=== PATIENT | male | born 1965 | race Caucasian/White ===

== ENCOUNTER 2021-10-03 19:47 | Inpatient (IN) | payer SELFPAY ==
[~2021-10-03] VITALS: Ht 188 cm; Wt 189.1 kg
--- NOTE | 2021-10-03 19:59 | NUR ---
BIB SELF C/O L SIDED LEG AND ARM WEAKNESS AND NUMBNESS X2HRS WELL HEADACHE SINCE 1400. PT STATES WEKNESS HAS PROGRESSIVELY WORSTENED AND HAS SIGNIFICANT DIFFICULTY MOVING BOTH LEFT EXTREMITIES. PT ALERT AND ORIENTED X4 W NO MENTAL STATUS CHANGES -FACIAL DROOP. PT BREATHING FAST BUT EVEN CHANGED INTO A GOWN AND PLACED ON MONITOR ALL V/S STABLE. MD AT THE BEDSIDE FOR EVALUATION.
--- NOTE | 2021-10-03 20:00 | NUR ---
CODE STROKE CALLED.
--- NOTE | 2021-10-03 20:00 | NUR ---
CODE STROKE CALLED.
--- NOTE | 2021-10-03 20:04 | NUR ---
PT TAKEN TO CT BY ADELITA VIA ACLS PROTOCOL
--- NOTE | 2021-10-03 20:04 | NUR ---
PT TAKEN TO CT BY ADELITA VIA ACLS PROTOCOL
[2021-10-03] MEDS ORDERED: IV NS 0.9% 250 ML IV ONE (20:05)
[2021-10-03] MEDS ORDERED: IOHEXOL-350 100 ML VIAL IV ONE (20:05)
--- NOTE | 2021-10-03 20:21 | NUR ---
PT RETURNED TO ER BED [address]
--- NOTE | 2021-10-03 20:21 | NUR ---
PT RETURNED TO ER BED [address]
--- NOTE | 2021-10-03 20:45 | NUR ---
PT AWAKE AND ALERT ALL V/S STABLE NO NEW NEURO DEFECITS NOTED ON ASSESSMENT.
--- NOTE | 2021-10-03 20:45 | NUR ---
PT AWAKE AND ALERT ALL V/S STABLE NO NEW NEURO DEFECITS NOTED ON ASSESSMENT.
[2021-10-03 20:47] LABS: BASOPHILS % (AUTO) 0.5 % (0.0-2.0); EOSINOPHILS % (AUTO) 4.9 % (0.0-6.0); HEMATOCRIT 42 % (39-51); HEMOGLOBIN 13.8 g/dL (13.5-17.5); LYMPHOCYTES # (AUTO) 1.3 K/uL (0.8-4.8); LYMPHOCYTES % (AUTO) 22.7 % (20.0-44.0); MEAN CORPUSCULAR HGB CONC 33 g/dl (31.0-36.0); MEAN CORPUSCULAR VOLUME 83 fL (80-96); MONOCYTES # (AUTO) 0.4 K/uL (0.1-1.30); MONOCYTES % (AUTO) 6.8 % (2.0-12.0); NEUTROPHILS # (AUTO) 3.8 K/uL (1.8-8.9); NEUTROPHILS % (AUTO) 65.1 % (43.0-81.0); PLATELET COUNT (AUTO) 248 K/uL (150-450); RED BLOOD CELL COUNT(AUTO) 5.04 MIL/uL (4.5-6.0); WHITE BLOOD COUNT (AUTO) 5.8 K/uL (4.3-11.0)
[2021-10-03 21:15] LABS: CALCIUM, SERUM 8.5 mg/dL (8.5-10.1); CARBON DIOXIDE 30 mmol/L (21-32); CHLORIDE 98 mmol/L (98-107); CREATININE 1.7 mg/dL (0.6-1.3); GLUCOSE 107 mg/dL (74-106); POTASSIUM 3.4 mmol/L (3.5-5.1); SODIUM SERUM 137 mmol/L (136-145); UREA NITROGEN, BLOOD 30 mg/dL (7-18)
--- NOTE | 2021-10-03 22:09 | NUR ---
PT AWAKE AND ALERT ALL V/S STABLE NO NEW NEURO DEFECITS NOTED ON ASSESSMENT.
--- NOTE | 2021-10-03 22:09 | NUR ---
PT AWAKE AND ALERT ALL V/S STABLE NO NEW NEURO DEFECITS NOTED ON ASSESSMENT.
--- NOTE | 2021-10-03 22:37 | NUR ---
COVID ANTIGEN SWAB COLLECTED AND SENT TO LAB. NOTIFIED LAB VIA PHONE CALL
--- NOTE | 2021-10-03 22:37 | NUR ---
COVID ANTIGEN SWAB COLLECTED AND SENT TO LAB. NOTIFIED LAB VIA PHONE CALL
[2021-10-03] MEDS ORDERED: MAGNESIUM HYDROXIDE 30 ML UDC PO PRN (23:30)
[2021-10-03] MEDS ORDERED: POTASSIUM CHLORIDE 20 MEQ TAB.PRT.SR PO ONE (23:30)
[2021-10-03] MEDS ORDERED: ONDANSETRON HCL/PF 4 MG/2 ML VIAL IVP PRN (23:30)
--- NOTE | 2021-10-04 00:39 | NUR ---
REPORT GIVEN TO WILLIAM
--- NOTE | 2021-10-04 00:39 | NUR ---
REPORT GIVEN TO WILLIAM
--- NOTE | 2021-10-04 00:54 | NUR ---
TRANSFERRED TO THIRD FLOOR UNDER ACLS
--- NOTE | 2021-10-04 00:54 | NUR ---
TRANSFERRED TO THIRD FLOOR UNDER ACLS
--- NOTE | 2021-10-04 01:00 | NUR ---
GAS LINE SERVICERSYSTEM SUPPORT SPECIALIST NOTE PATIENT ARRIVED ON FLOOR, ALERT/ORIENTED X 4, PT ABLE TO MAKE NEEDS KNOWN. PT DENIES PAIN AT THIS TIME. PATIENT STILL REPORTING LEFT SIDED WEAKNESS AND TINGLING BUT WAS ABLE TO WALK TO BED WITH SBA. PT STABLE ON RA, NO S/S OF DISTRESS OR SOB NOTED, BREATHING EVEN AND UNLABORED. PT ON EXTERNAL BOTTLE PACKER READING SINUS RHYTHM WITH PVC'S AND PAC'S. IV ACCESS ON RIGHT AND LEFT AC #18G INTACT AND FLUSHING WELL, PATIENT REPORTING PAIN ON RIGHT IV ACCESS SO IT WAS REMOVED, INTACT WITH MINIMAL BLEEDING. PATIENT REPORTS HEADACHE AROUND 2 PM FOLLOWED BY LEFT SIDED WEAKNESS A COUPLE HOURS LATER. HISTORY OF TIA, CHF, MS, CARDIAC STENT X 3. PATIENT STATES HE RECEIVED FLU VACCINE IN NOVEMBER AND IS FULLY VACCINATED FOR COVID INCLUDING BOOSTER, RECEIVED PFEIZER. PERFORMED BEDSIDE SWALLOW EVAL AND PATIENT WAS ABLE TO DRINK WATER WITHOUT COUGHING, CHOKING OR DRIPPING WATER, NO FACIAL DROOP OBSERVED EITHER. SAFETY MEASURES IN PLACE: CALL LIGHT WITHIN REACH, SIDE RAILS UP X 2, BED LOCKED IN LOW POSITION, BED ALARM ON. WILL CONTINUE TO MONITOR PATIENT
--- NOTE | 2021-10-04 01:00 | NUR ---
CUSTOMS HOUSE BROKERARTS AND HUMANITIES COUNCIL DIRECTOR NOTE PATIENT ARRIVED ON FLOOR, ALERT/ORIENTED X 4, PT ABLE TO MAKE NEEDS KNOWN. PT DENIES PAIN AT THIS TIME. PATIENT STILL REPORTING LEFT SIDED WEAKNESS AND TINGLING BUT WAS ABLE TO WALK TO BED WITH SBA. PT STABLE ON RA, NO S/S OF DISTRESS OR SOB NOTED, BREATHING EVEN AND UNLABORED. PT ON EXTERNAL CLIENT REPRESENTATIVE READING SINUS RHYTHM WITH PVC'S AND PAC'S. IV ACCESS ON RIGHT AND LEFT AC #18G INTACT AND FLUSHING WELL, PATIENT REPORTING PAIN ON RIGHT IV ACCESS SO IT WAS REMOVED, INTACT WITH MINIMAL BLEEDING. PATIENT REPORTS HEADACHE AROUND 2 PM FOLLOWED BY LEFT SIDED WEAKNESS A COUPLE HOURS LATER. HISTORY OF TIA, CHF, [place], CARDIAC STENT X 3. PATIENT STATES HE RECEIVED FLU VACCINE IN NOVEMBER AND IS FULLY VACCINATED FOR COVID INCLUDING BOOSTER, RECEIVED PFEIZER. PERFORMED BEDSIDE SWALLOW EVAL AND PATIENT WAS ABLE TO DRINK WATER WITHOUT COUGHING, CHOKING OR DRIPPING WATER, NO FACIAL DROOP OBSERVED EITHER. SAFETY MEASURES IN PLACE: CALL LIGHT WITHIN REACH, SIDE RAILS UP X 2, BED LOCKED IN LOW POSITION, BED ALARM ON. WILL CONTINUE TO MONITOR PATIENT
[2021-10-04] MEDS: ATORVASTATIN 10 MG TABLET PO SCH ×2 (01:55→21:06)
[2021-10-04] MEDS: IV NS 0.9% 1,000 ML IV PRN (01:55)
[2021-10-04] MEDS: CLOPIDOGREL BISULFATE 75 MG TABLET PO SCH ×2 (01:55→08:48)
[2021-10-04] MEDS ORDERED: POTASSIUM CHLORIDE 20 MEQ TAB.PRT.SR PO ONE (01:58)
[2021-10-04 04:08] VITALS: BP 127/71
[2021-10-04 07:18] LABS: CALCIUM, SERUM 8.9 mg/dL (8.5-10.1); CREATININE 1.4 mg/dL (0.6-1.3); POTASSIUM 3.4 mmol/L (3.5-5.1)
[2021-10-04 07:30] LABS: ALBUMIN 3.5 g/dL (3.4-5.0); BILIRUBIN,TOTAL 0.3 mg/dL (0.2-1.0); MAGNESIUM 2.3 mg/dL (1.8-2.4); PHOSPHORUS 4.3 mg/dL (2.5-4.9); TOTAL PROTEIN, SERUM 7.4 g/dL (6.4-8.2)
--- NOTE | 2021-10-04 07:30 | NUR ---
WOODWIND REEDS CUTTER OPENING NOTES RECEIVED PATIENT RESTING ON BED AND A/O X 4. KIM ROOM AIR BREATHING EVENLY AND UNLABORED. WITH NO COMPLAINTS OF PAIN OR DISCOMFORT AT THIS TIME. ON EXTERNAL FLAT KNITTER HELPER READING SINUS RHYTHM, WITH PVC'S, PAC'S AND OCCASIONAL BBB, HR: 76. WITH IV ACCESS ON LEFT AC #18G INTACT AND SALINE LOCKED. SAFETY MEASURES IN PLACED: CALL LIGHT WITHIN REACH, SIDE RAILS UP X 2, BED LOCKED IN LOW POSITION, BED ALARM ON. WILL CONTINUE TO MONITOR.
--- NOTE | 2021-10-04 07:30 | NUR ---
DOCUMENTATION COORDINATOR OPENING NOTES RECEIVED PATIENT RESTING ON BED AND A/O X 4. KIM ROOM AIR BREATHING EVENLY AND UNLABORED. WITH NO COMPLAINTS OF PAIN OR DISCOMFORT AT THIS TIME. ON EXTERNAL LOGISTICS CENTER MANAGER READING SINUS RHYTHM, WITH PVC'S, PAC'S AND OCCASIONAL BBB, HR: 76. WITH IV ACCESS ON LEFT AC #18G INTACT AND SALINE LOCKED. SAFETY MEASURES IN PLACED: CALL LIGHT WITHIN REACH, SIDE RAILS UP X 2, BED LOCKED IN LOW POSITION, BED ALARM ON. WILL CONTINUE TO MONITOR.
--- NOTE | 2021-10-04 07:38 | NUR ---
BROKER ASSISTANT CLOSING NOTE PATIENT AWAKE IN BED, ALERT/ ORIENTED X 4, PT ABLE TO MAKE NEEDS KNOWN. PATIENT STABLE ON RA, NO S/S OF DISTRESS OR SOB NOTED, BREATHING EVEN AND UNLABORED. PATIENT ON EXTERNAL HARVESTING CONTRACTOR READING SINUS RHYTHM, WITH PVC'S, PAC'S AND OCCASIONAL BBB, HR: 73. IV ACCESS ON LEFT AC #18G INTACT AND SALINE LOCKED, PATIENT REFUSED IVF DESPITE EXPLANATION OF RISKS AND BENEFITS, PT STATED HE HAS CHF AND IS DRINKING FLUIDS. MEDICATIONS GIVEN ORDERED, PT NEEDS MET THROUGHOUT SHIFT. SAFETY MEASURES IN PLACE: CALL LIGHT WITHIN REACH, SIDE RAILS UP X 2, BED LOCKED IN LOW POSITION, BED ALARM ON. ENDORSED TO DAY SHIFT NURSE FOR CONTINUITY OF CARE
--- NOTE | 2021-10-04 07:38 | NUR ---
OXYGEN THERAPY TEACHER CLOSING NOTE PATIENT AWAKE IN BED, ALERT/ ORIENTED X 4, PT ABLE TO MAKE NEEDS KNOWN. PATIENT STABLE ON RA, NO S/S OF DISTRESS OR SOB NOTED, BREATHING EVEN AND UNLABORED. PATIENT ON EXTERNAL CRINKLING MACHINE OPERATOR READING SINUS RHYTHM, WITH PVC'S, PAC'S AND OCCASIONAL BBB, HR: 73. IV ACCESS ON LEFT AC #18G INTACT AND SALINE LOCKED, PATIENT REFUSED IVF DESPITE EXPLANATION OF RISKS AND BENEFITS, PT STATED HE HAS CHF AND IS DRINKING FLUIDS. MEDICATIONS GIVEN ORDERED, PT NEEDS MET THROUGHOUT SHIFT. SAFETY MEASURES IN PLACE: CALL LIGHT WITHIN REACH, SIDE RAILS UP X 2, BED LOCKED IN LOW POSITION, BED ALARM ON. ENDORSED TO DAY SHIFT NURSE FOR CONTINUITY OF CARE
[2021-10-04 07:46] LABS: BASOPHILS % (AUTO) 0.6 % (0.0-2.0); EOSINOPHILS % (AUTO) 6.1 % (0.0-6.0); HEMATOCRIT 41 % (39-51); HEMOGLOBIN 13.8 g/dL (13.5-17.5); LYMPHOCYTES # (AUTO) 1.6 K/uL (0.8-4.8); LYMPHOCYTES % (AUTO) 25.7 % (20.0-44.0); MEAN CORPUSCULAR HGB CONC 33 g/dl (31.0-36.0); MEAN CORPUSCULAR VOLUME 83 fL (80-96); MONOCYTES # (AUTO) 0.6 K/uL (0.1-1.30); MONOCYTES % (AUTO) 8.8 % (2.0-12.0); NEUTROPHILS # (AUTO) 3.7 K/uL (1.8-8.9); NEUTROPHILS % (AUTO) 58.8 % (43.0-81.0); PLATELET COUNT (AUTO) 273 K/uL (150-450); WHITE BLOOD COUNT (AUTO) 6.3 K/uL (4.3-11.0)
[2021-10-04 08:00] VITALS: BP 135/71
[2021-10-04 08:46] LABS: THYROID STIMULATING HORMONE 9.824 uIU/mL (0.358-3.74)
[2021-10-04] MEDS: ASPIRIN 81 MG TAB.CHEW PO SCH (08:48)
[2021-10-04] MEDS ORDERED: ATOR80TA PO (09:23)
[2021-10-04] MEDS ORDERED: ASPI-1169 PO (09:24)
[2021-10-04] MEDS: ACETAMINOPHEN 325 MG TABLET PO PRN (16:29)
--- NOTE | 2021-10-04 18:28 | NUR ---
JOB PRESS FEEDER CLOSING NOTES PATIENT RESTING ON BED AND A/O X 4. ON ROOM AIR BREATHING EVENLY AND UNLABORED. WITH NO COMPLAINTS OF PAIN OR DISCOMFORT AT THIS TIME. ON EXTERNAL TRIMMER CLIMBER READING SINUS RHYTHM, WITH PVC'S, PAC'S AND OCCASIONAL BBB AT 90BPM. WITH IV ACCESS ON LEFT AC #18G INTACT AND SALINE LOCKED. SAFETY MEASURES IN PLACED: CALL LIGHT WITHIN REACH, SIDE RAILS UP X 2, BED LOCKED IN LOW POSITION, BED ALARM ON. WILL ENDORSE TO NEXT SHIFT FOR NU.
--- NOTE | 2021-10-04 18:28 | NUR ---
FLORIST'S DECORATOR CLOSING NOTES PATIENT RESTING ON BED AND A/O X 4. ON ROOM AIR BREATHING EVENLY AND UNLABORED. WITH NO COMPLAINTS OF PAIN OR DISCOMFORT AT THIS TIME. ON EXTERNAL SUPERVISOR ADULT EDUCATION READING SINUS RHYTHM, WITH PVC'S, PAC'S AND OCCASIONAL BBB AT 90BPM. WITH IV ACCESS ON LEFT AC #18G INTACT AND SALINE LOCKED. SAFETY MEASURES IN PLACED: CALL LIGHT WITHIN REACH, SIDE RAILS UP X 2, BED LOCKED IN LOW POSITION, BED ALARM ON. WILL ENDORSE TO NEXT SHIFT FOR NU.
[2021-10-04 20:00] VITALS: BP 132/82
[2021-10-05] MEDS: IV NS 0.9% 1,000 ML IV PRN (00:54)
--- NOTE | 2021-10-05 04:47 | NUR ---
CLOSING RN NOTES: ALERT AND ORIENTATED X4 NIHSS SCALE 6 D/T LEFT ARM DRIFT AND LEFT LEAK WEAKNESS. HE AMBULATES TO THE BATHROOM TURNS SELF IN THE BED HAND CUSTOMS BROKERAGE AGENT STRONG SWALLOWS W/O PROBLEMS. SPEECH CLEAR WILL MAKE HIS NEED KNOWN BED ALARM ON EXPLAINED TO HIM THE IMPORTANCE OF CALLING THE [facility] FOR ASSIST FOR SAFETY SR ON THE TELE MONITOR.
--- NOTE | 2021-10-05 04:47 | NUR ---
CLOSING RN NOTES: ALERT AND ORIENTATED X4 NIHSS SCALE 6 D/T LEFT ARM DRIFT AND LEFT LEAK WEAKNESS. HE AMBULATES TO THE BATHROOM TURNS SELF IN THE BED HAND PATIENT DAY COORDINATOR STRONG SWALLOWS W/O PROBLEMS. SPEECH CLEAR WILL MAKE HIS NEED KNOWN BED ALARM ON EXPLAINED TO HIM THE IMPORTANCE OF CALLING THE [facility] FOR ASSIST FOR SAFETY SR ON THE TELE MONITOR.
--- NOTE | 2021-10-05 05:20 | NUR ---
REFUSED 0400 AM VITAL SIGNS
--- NOTE | 2021-10-05 05:20 | NUR ---
REFUSED 0400 AM VITAL SIGNS
--- NOTE | 2021-10-05 05:28 | NUR ---
OFF THE MONITOR NO READING PATIENT REFUSING TO HAVE THE MONITOR LEADS CHANGED, PULLS THE BLANKET OVER HIS HEAD. THE LAD CAME IN AND HE REFUSED STATED "NOT TODAY", WHENI WENT TO TAKE HIS 4AM BLOOD PRESSURE HE COVERED HIS HEAD WITH THE BLANKET AND STATED "NO"
--- NOTE | 2021-10-05 07:45 | NUR ---
BED SETTER OPENING NOTES RECEIVED PT IN BED ASLEEP, EASY TO AROUSE. ALERT AND ORIENTED X4 . NO S/SX OF DISTRESS NOTED. NO SOB. BREATHING EVEN AND UNLABORED, TOLERATING WELL ON ROOM AIR. IV ACCESS ON LAC #18 INTACT AND PATENT. PT REFUSING IVF AT THIS TIME. PT REFUSING EXTERNAL MANAGER OF MAINTENANCE AT THIS TIME. SAFETY MEASURE IN PLACE WITH BED LOCKED AND IN LOWEST POSITION, SR UP X2, CALL LIGHT PLACED WITHIN EASY REACH. WILL CONTINUE TO MONITOR PT FOR CHANGES IN CONDITION.
--- NOTE | 2021-10-05 07:45 | NUR ---
SUPERVISOR BRAIDING OPENING NOTES RECEIVED PT IN BED ASLEEP, EASY TO AROUSE. ALERT AND ORIENTED X4 . NO S/SX OF DISTRESS NOTED. NO SOB. BREATHING EVEN AND UNLABORED, TOLERATING WELL ON ROOM AIR. IV ACCESS ON LAC #18 INTACT AND PATENT. PT REFUSING IVF AT THIS TIME. PT REFUSING EXTERNAL YARDER ENGINEER AT THIS TIME. SAFETY MEASURE IN PLACE WITH BED LOCKED AND IN LOWEST POSITION, SR UP X2, CALL LIGHT PLACED WITHIN EASY REACH. WILL CONTINUE TO MONITOR PT FOR CHANGES IN CONDITION.
[2021-10-05 09:25] LABS: ALBUMIN 3.2 g/dL (3.4-5.0); BILIRUBIN,TOTAL 0.4 mg/dL (0.2-1.0); CALCIUM, SERUM 8.7 mg/dL (8.5-10.1); POTASSIUM 3.5 mmol/L (3.5-5.1)
[2021-10-05] MEDS: ASPIRIN 81 MG TAB.CHEW PO SCH (09:25)
[2021-10-05] MEDS: CLOPIDOGREL BISULFATE 75 MG TABLET PO SCH (09:25)
[2021-10-05 09:44] LABS: BASOPHILS % (AUTO) 0.1 % (0.0-2.0); EOSINOPHILS % (AUTO) 2.6 % (0.0-6.0); HEMATOCRIT 41 % (39-51); HEMOGLOBIN 13.9 g/dL (13.5-17.5); LYMPHOCYTES # (AUTO) 0.6 K/uL (0.8-4.8); LYMPHOCYTES % (AUTO) 8.5 % (20.0-44.0); MEAN CORPUSCULAR HGB CONC 34 g/dl (31.0-36.0); MEAN CORPUSCULAR VOLUME 83 fL (80-96); MONOCYTES # (AUTO) 0.4 K/uL (0.1-1.30); MONOCYTES % (AUTO) 5.3 % (2.0-12.0); NEUTROPHILS # (AUTO) 6.3 K/uL (1.8-8.9); NEUTROPHILS % (AUTO) 83.5 % (43.0-81.0); PLATELET COUNT (AUTO) 240 K/uL (150-450); RED BLOOD CELL COUNT(AUTO) 4.98 MIL/uL (4.5-6.0); WHITE BLOOD COUNT (AUTO) 7.5 K/uL (4.3-11.0)
--- NOTE | 2021-10-05 19:31 | NUR ---
RN CLOSING NOTES PATIENT RESTING ON BED AND A/O X 4. ON ROOM AIR BREATHING EVENLY AND UNLABORED. WITH NO COMPLAINTS OF PAIN OR DISCOMFORT AT THIS TIME. PT REFUSING SUPERVISOR WHIPPED TOPPING. SAFETY MEASURES IN PLACED: CALL LIGHT WITHIN REACH, SIDE RAILS UP X 2, BED LOCKED IN LOW POSITION, BED ALARM ON. WILL ENDORSE TO NEXT SHIFT FOR NU.
--- NOTE | 2021-10-05 19:31 | NUR ---
RN CLOSING NOTES PATIENT RESTING ON BED AND A/O X 4. ON ROOM AIR BREATHING EVENLY AND UNLABORED. WITH NO COMPLAINTS OF PAIN OR DISCOMFORT AT THIS TIME. PT REFUSING SWIMMING POOL MAINTENANCE. SAFETY MEASURES IN PLACED: CALL LIGHT WITHIN REACH, SIDE RAILS UP X 2, BED LOCKED IN LOW POSITION, BED ALARM ON. WILL ENDORSE TO NEXT SHIFT FOR NU.
--- NOTE | 2021-10-05 19:40 | NUR ---
TELE/RN OPENING NOTE RECEIVED PATIENT RESTING IN BED. AWAKE, ALERT AND ORIENTED X 4. ABLE TO MAKE NEEDS KNOWN. DENIES PAIN AT THIS TIME. CONTINUES ON ROOM AIR WITH NO S/SX OF RESPIRATORY DISTRESS NOTED. IV ACCESS TO LEFT AC #18G INTACT, PATENT AND SALINE LOCKED. CONTINUES TO REFUSE IVF. PATIENT WITH GOOD PO INTAKE. CONTINUES TO REFUSE TELE MONITOR WITH RISKS EXPLAINED. CONTINUES ON NEURO CHECKS. CALL LIGHT WITHIN REACH. ASPIRATION, FALL AND SAFETY PRECAUTIONS MAINTAINED. WILL CONTINUE TO MONITOR.
[2021-10-05 20:37] VITALS: BP 130/82
[2021-10-05] MEDS: ATORVASTATIN 10 MG TABLET PO SCH (22:11)
[2021-10-06 00:27] VITALS: BP 148/94
--- NOTE | 2021-10-06 06:40 | NUR ---
TELE/RN CLOSING NOTE PATIENT CURRENTLY SLEEPING IN BED. ALERT AND ORIENTED X 4. ABLE TO MAKE NEEDS KNOWN. DENIES PAIN AT THIS TIME. CONTINUES ON ROOM AIR WITH NO S/SX OF RESPIRATORY DISTRESS NOTED. IV ACCESS TO LEFT AC #18G INTACT, PATENT AND SALINE LOCKED. CONTINUES TO REFUSE IVF. PATIENT WITH GOOD PO INTAKE. CONTINUES TO REFUSE TELE MONITOR WITH RISKS EXPLAINED. CONTINUES ON NEURO CHECKS. CALL LIGHT WITHIN REACH. ASPIRATION, FALL AND SAFETY PRECAUTIONS MAINTAINED. WILL ENDORSE PLAN OF CARE TO ONCOMING SHIFT.
--- NOTE | 2021-10-06 07:29 | NUR ---
BALE TIE MACHINE OPERATOR OPENING NOTES RECEIVED Pt SLEEPING IN BED, EASILY AROUSABLE. ALERT AND ORIENTED X 4. ABLE TO MAKE NEEDS KNOWN. DENIES PAIN AT THIS TIME, NO SIGNS OF DISTRESS NOTICED AT THIS TIME. Pt IS ON ROOM AIR AND TOLERATING WELL WITH NO SYMPTOMS OF RESPIRATORY DISTRESS NOTED. IV ACCESS ON LEFT AC #18g AND IS INTACT, PATENT AND SALINE LOCKED. Pt REFUSING IVF AT THIS TIME. PATIENT CURRENTLY REFUSING TELE MONITOR WITH RISKS EXPLAINED. CONTINUES ON NEURO CHECKS. SAFETY PRECAUTIONS IN PLACE: BED IS LOCKED AND IN LOWEST POSITION, SIDE RAILS UP x2, CALL LIGHT AND BEDSIDE TABLE ARE WITHIN REACH. WILL CONTINUE TO MONITOR THROUGHOUT THE SHIFT.
[2021-10-06] MEDS: CLOPIDOGREL BISULFATE 75 MG TABLET PO SCH (09:09)
[2021-10-06] MEDS: ASPIRIN 81 MG TAB.CHEW PO SCH (09:09)
[2021-10-06 12:06] LABS: *SPE ALPHA-1-GLOBULIN 0.2 g/dL (0.0-0.4); *SPE ALPHA-2-GLOBULIN 0.9 g/dL (0.4-1.0); *SPE BETA GLOBULIN 0.9 g/dL (0.7-1.3); *SPE M-SPIKE Not Observed g/dL (Not Observed)
--- NOTE | 2021-10-06 13:17 | NUR ---
SS Consult: SS consult for stroke. Pt. Is a 56-year-old male. Pt. demonstrates adequate insight to the reason for hospitalization. Pt. was oriented x4, alert, and cooperative. During interview, pt. was capable of following directions, made appropriate eye-contact, and appeared groomed. Pt.s speech was at a normal rate. Pt.s mood was elevated. SW explored pt.s hx of mental health and substance abuse. Pt. reported no hx of mental health, substance abuse, suicidal or homicidal ideation. Pt. denies auditory hallucinations, visual hallucinations, paranoia, or delusions. SW explored pt.s living situation. Per pt., he lives alone [[address] [place] [address]]. Pt. mentioned that he lives in [place] and has been in [place] since Saturday [10/03/21]. Per pt., he reports having no adequate support. Per pt., he has no insurance and is not sure how he will be paying for his stay at the hospital and physical therapy. Pt. requested to speak with CM. CHELLY did a PHQ9 on pt. and he scored a 2. No need for psych consult. Plan: SW provided available resources and pt. accepted. Resources Provided: Stroke Empowerment Packet
--- NOTE | 2021-10-06 13:17 | NUR ---
SS Consult: SS consult for stroke. Pt. Is a 56-year-old male. Pt. demonstrates adequate insight to the reason for hospitalization. Pt. was oriented x4, alert, and cooperative. During interview, pt. was capable of following directions, made appropriate eye-contact, and appeared groomed. Pt.s speech was at a normal rate. Pt.s mood was elevated. SW explored pt.s hx of mental health and substance abuse. Pt. reported no hx of mental health, substance abuse, suicidal or homicidal ideation. Pt. denies auditory hallucinations, visual hallucinations, paranoia, or delusions. SW explored pt.s living situation. Per pt., he lives alone [[address] [place] [address]]. Pt. mentioned that he lives in [place] and has been in [place] since Saturday [10/03/21]. Per pt., he reports having no adequate support. Per pt., he has no insurance and is not sure how he will be paying for his stay at the hospital and physical therapy. Pt. requested to speak with CM. CHELLY did a PHQ9 on pt. and he scored a 2. No need for psych consult. Plan: SW provided available resources and pt. accepted. Resources Provided: Stroke Empowerment Packet
[2021-10-06 16:00] VITALS: BP 123/59
--- NOTE | 2021-10-06 19:18 | NUR ---
TELE/RN CLOSING NOTE Pt CURRENTLY RESTING IN BED. ALERT AND ORIENTED X 4. ABLE TO MAKE NEEDS KNOWN. DENIES PAIN AT THIS TIME. CONTINUES ON ROOM AIR WITH NO S/SX OF RESPIRATORY DISTRESS NOTED. IV ACCESS TO LEFT AC #18g INTACT, PATENT AND SALINE LOCKED. CONTINUES TO REFUSE IVF AND CONTINUES TO REFUSE TO WEAR TELE MONITOR AND ALL RISKS EXPLAINED. CONTINUES ON NEURO CHECKS. SAFETY MEASURES ARE IN PLACE, CALL LIGHT AND BEDSIDE TABLE ARE WITHIN REACH. BED IS LOCKED AND IN LOWEST POSITION, SIDE RAILS UP x2. ASPIRATION, FALL AND SAFETY PRECAUTIONS MAINTAINED. WILL ENDORSE PLAN OF CARE TO ONCOMING SHIFT.
--- NOTE | 2021-10-06 19:30 | NUR ---
RN opening notes Pt is laying in bed comfortably watching TV. Pt is alert and orientedX4. Respiration is normal in room air. No SOB. No S/S of distress noted. IV site at LAC#18 is clean, intact and SL. Pt refused tele monitor. explained risks and benefits. Continues neuro checks. Safety precautions is maintained. Bed at low position, brakes locked, side rails up, hob elevated, urinal at the bedside and call light is within reach. Will continue to monitor.
[2021-10-06 20:00] VITALS: BP 110/52
[2021-10-06] MEDS: ATORVASTATIN 10 MG TABLET PO SCH (21:13)
--- NOTE | 2021-10-07 06:30 | NUR ---
RN closing notes Pt is resting in bed comfortably. Pt is alert and orientedX4. Respiration is normal in room air. No SOB. No S/S of distress noted. IV site at LAC#18 is clean, intact and SL. Routine meds were given as ordered. Continues neuro checks. Kept Pt clean, dry and comfortable. Safety precautions is maintained. Bed at low position, brakes locked, side rails up, hob elevated, urinal at the bedside and call light is within reach. Will endorse to am nurse for NU.
[2021-10-07] MEDS: ASPIRIN 81 MG TAB.CHEW PO SCH (08:41)
[2021-10-07] MEDS: CLOPIDOGREL BISULFATE 75 MG TABLET PO SCH (08:41)
[2021-10-07 09:33] LABS: BASOPHILS % (AUTO) 0.2 % (0.0-2.0); EOSINOPHILS % (AUTO) 4.9 % (0.0-6.0); HEMATOCRIT 41 % (39-51); HEMOGLOBIN 13.6 g/dL (13.5-17.5); LYMPHOCYTES # (AUTO) 1.1 K/uL (0.8-4.8); LYMPHOCYTES % (AUTO) 18.4 % (20.0-44.0); MEAN CORPUSCULAR HGB CONC 33 g/dl (31.0-36.0); MEAN CORPUSCULAR VOLUME 83 fL (80-96); MONOCYTES # (AUTO) 0.3 K/uL (0.1-1.30); MONOCYTES % (AUTO) 5.4 % (2.0-12.0); NEUTROPHILS # (AUTO) 4.3 K/uL (1.8-8.9); NEUTROPHILS % (AUTO) 71.1 % (43.0-81.0); PLATELET COUNT (AUTO) 226 K/uL (150-450); RED BLOOD CELL COUNT(AUTO) 4.96 MIL/uL (4.5-6.0); WHITE BLOOD COUNT (AUTO) 6.1 K/uL (4.3-11.0)
[2021-10-07 11:03] LABS: CALCIUM, SERUM 8.3 mg/dL (8.5-10.1); CREATININE 1.1 mg/dL (0.6-1.3); POTASSIUM 3.9 mmol/L (3.5-5.1)
--- NOTE | 2021-10-07 18:36 | NUR ---
RN MS CLOSING NOTES Pt IS RESTING IN BED. A/O x4. NO SIGNS OF DISTRESS AND NO COMPLAINTS OF PAIN AT THIS TIME. Pt IS ON ROOM AIR AND TOLERATING WELL AT THIS TIME. IV SITE ON L AC SL. IVF REFUSED BY Pt. NEURO CHECKS DONE ORDERED. Pt IS ABLE TO EXPRESS ALL NEEDS, ALL NEEDS MET. SAFETY MEASURES ARE IN PLACE: BED IS LOCKED AND IN LOWEST POSITION. SIDE RAILS UP x3. BED SIDE TABLE AND CALL LIGHT ARE WITHIN REACH. WILL ENDORSE TO ONCOMING SHIFT.
--- NOTE | 2021-10-07 19:20 | NUR ---
MS RN OPENING NOTES RECEIVED PATIENT LAYING AWAKE IN BED. A/OX4. PATIENT WITH REGULAR AND UNLABORED BREATHING ON ROOM AIR TOLERATED WELL. NO SIGNS AND SYMPTOMS OF DISTRESS NOTED AT THIS TIME. NO COMPLAINS OF PAIN OR DISCOMFORT AT THIS TIME. IV ACCESS LAC G #18 SL. IV ACCESS PATENT AND INTACT. SAFETY PRECAUTIONS ENFORCED WITH BED LOCKED AND AT LOWEST POSITION. SIDERAILS UP X2. CALL LIGHT WITHIN REACH AT ALL TIMES. WILL CONTINUE TO MONITOR PATIENT.
[2021-10-07 20:00] VITALS: BP 142/78
[2021-10-07] MEDS: ATORVASTATIN 10 MG TABLET PO SCH (22:18)
--- NOTE | 2021-10-08 06:50 | NUR ---
MS RN CLOSING NOTES PATIENT STILL LAYING AWAKE IN BED. A/OX4. PATIENT WITH REGULAR AND UNLABORED BREATHING ON ROOM AIR TOLERATED WELL. NO SIGNS AND SYMPTOMS OF DISTRESS NOTED AT THIS TIME. NO COMPLAINS OF PAIN OR DISCOMFORT AT THIS TIME. IV ACCESS LAC G #18 SL. IV ACCESS PATENT AND INTACT. SAFETY PRECAUTIONS ENFORCED WITH BED LOCKED AND AT LOWEST POSITION. SIDERAILS UP X2. CALL LIGHT WITHIN REACH AT ALL TIMES. WILL ENDORSE CONTINUITY OF CARE TO DAY SHIFT NURSE.
--- NOTE | 2021-10-08 07:30 | NUR ---
MS RN OPENING NOTES RECEIVED PATIENT ON BED AWAKE AND A/O X4. ON ROOM AIR TOLERATING WELL. NO SOB NOTED. NOT IN DISTRESS. WITH NO COMPLAINTS OF ABDOMINAL PAIN AND DIARRHEA. COMFORT MEASURES PROVIDED. WITH IV ACCESS LEFT AC G18 SALINE LOCKED, PATENT AND INTACT. SAFETY MEASURES IN PLACED. CALL LIGHT WITHIN REACH. BED ON LOWEST LOCKED POSITION. SIDE RAILS UP X2. WILL CONTINUE TO MONITOR.
[2021-10-08] MEDS: CLOPIDOGREL BISULFATE 75 MG TABLET PO SCH (08:15)
[2021-10-08] MEDS: ASPIRIN 81 MG TAB.CHEW PO SCH (08:15)
[2021-10-08 09:47] VITALS: BP 143/83
[2021-10-08] MEDS: LOPERAMIDE HCL (2 MG CAP) 2 MG CAPSULE PO PRN ×2 (12:58→20:56)
[2021-10-08 15:53] VITALS: BP 140/84
--- NOTE | 2021-10-08 18:39 | NUR ---
MS RN CLOSING NOTES PATIENT ON BED AWAKE AND A/O X4. ON ROOM AIR TOLERATING WELL. NO SOB NOTED. NOT IN DISTRESS. WITH NO COMPLAINTS OF PAIN OR DISCOMFORT. COMFORT MEASURES PROVIDED. WITH IV ACCESS LEFT AC G18 SALINE LOCKED, PATENT AND INTACT. DUE MEDS GIVEN. SAFETY MEASURES IN PLACED. CALL LIGHT WITHIN REACH. BED ON LOWEST LOCKED POSITION. SIDE RAILS UP X2. WILL ENDORSE TO NEXT SHIFT FOR NU.
--- NOTE | 2021-10-08 19:40 | NUR ---
RN NOTES RECEIVED PATIENT AWAKE ON HIS BED, A/OX4, DENEIS PAIN, NO SOB, CALL LIGHT WITHIN REACH, SIDERAILSUPX2, WILL CONTINUE TO MONITOR
--- NOTE | 2021-10-08 19:40 | NUR ---
RN NOTES RECEIVED PATIENT AWAKE ON HIS BED, A/OX4, DENEIS PAIN, NO SOB, CALL LIGHT WITHIN REACH, SIDERAILSUPX2, WILL CONTINUE TO MONITOR
[2021-10-08 20:00] VITALS: BP 137/92
[2021-10-08] MEDS: ATORVASTATIN 10 MG TABLET PO SCH ×2 (21:53→21:55)
--- NOTE | 2021-10-09 01:00 | NUR ---
RN NOTES INSERTED NEW IV ACCESS ON THE RIGHT WRIST # 22
--- NOTE | 2021-10-09 01:00 | NUR ---
RN NOTES INSERTED NEW IV ACCESS ON THE RIGHT WRIST # 22
--- NOTE | 2021-10-09 01:40 | NUR ---
RN NOTES PATIENT IS VOMITING, ZOFRAN 4 MG IV GIVEN ORDERED
--- NOTE | 2021-10-09 01:40 | NUR ---
RN NOTES PATIENT IS VOMITING, ZOFRAN 4 MG IV GIVEN ORDERED
[2021-10-09] MEDS: ACETAMINOPHEN 325 MG TABLET PO PRN (02:46)
[2021-10-09] MEDS: MORPHINE SULFATE INJ 2 MG/ML DISP.SYRIN IV PRN ×2 (03:00→14:48)
--- NOTE | 2021-10-09 03:00 | NUR ---
RN NOTES COMPLAINED OF SEVERE ABDOMINAL PAIN- SPOKE TO FAROOQ AND GOT ORDER OF MORPHINE 2 MG IV ORDER NOTED AND CARRIED OUT
--- NOTE | 2021-10-09 03:00 | NUR ---
RN NOTES COMPLAINED OF SEVERE ABDOMINAL PAIN- SPOKE TO FAROOQ AND GOT ORDER OF MORPHINE 2 MG IV ORDER NOTED AND CARRIED OUT
--- NOTE | 2021-10-09 03:00 | NUR ---
RN NOTES MORPHINE 2 MG IV GIVEN FOR SEVERE ABDOMINAL PAIN
--- NOTE | 2021-10-09 03:00 | NUR ---
RN NOTES MORPHINE 2 MG IV GIVEN FOR SEVERE ABDOMINAL PAIN
--- NOTE | 2021-10-09 06:47 | NUR ---
RN NOTES SLEEPING BUT AROUSABLE, PT. REFUSED LAB WORK THIS MORNING, CHARGE NURSE MADE AWARE., DENIES PAIN, NO SOB, CALL LIGHT WITHIN REACH, SIDERAILSUPX2, PT. NEEDS ATTENDED
--- NOTE | 2021-10-09 07:23 | NUR ---
MS RN OPENING NOTES RECEIVED PATIENT SLEEPING ON BED, EASILY AROUSED. NO SIGNS OF ACUTE DISTRESS NOTED. ON ROOM AIR TOLERATING WELL, NO SOB, BREATHING EVEN AND UNLABORED. WITH IV ACCESS ON RWRIST #22G, INTACT AND PATENT. DENIES ANY PAIN AT THIS TIME. SAFETY MEASURES IN PLACE. BED LOCKED AND IN LOWEST POSITION, SR UP X2, CALL LIGHT PLACED WITHIN EASY REACH. WILL CONTINUE TO MONITOR.
[2021-10-09] MEDS: ASPIRIN 81 MG TAB.CHEW PO SCH (08:30)
[2021-10-09] MEDS: CLOPIDOGREL BISULFATE 75 MG TABLET PO SCH (08:30)
[2021-10-09 12:02] LABS: BASOPHILS % (AUTO) 0.2 % (0.0-2.0); HEMATOCRIT 42 % (39-51); HEMOGLOBIN 13.9 g/dL (13.5-17.5); LYMPHOCYTES % (AUTO) 11.9 % (20.0-44.0); MEAN CORPUSCULAR HGB CONC 33 g/dl (31.0-36.0); MEAN CORPUSCULAR VOLUME 83 fL (80-96); MONOCYTES # (AUTO) 0.5 K/uL (0.1-1.30); MONOCYTES % (AUTO) 5.2 % (2.0-12.0); NEUTROPHILS % (AUTO) 79.7 % (43.0-81.0); PLATELET COUNT (AUTO) 282 K/uL (150-450); RED BLOOD CELL COUNT(AUTO) 5.02 MIL/uL (4.5-6.0); WHITE BLOOD COUNT (AUTO) 8.8 K/uL (4.3-11.0)
[2021-10-09 14:15] LABS: CALCIUM, SERUM 8.4 mg/dL (8.5-10.1); CREATININE 1.1 mg/dL (0.6-1.3); POTASSIUM 3.9 mmol/L (3.5-5.1)
[2021-10-09 16:00] VITALS: BP 132/73
--- NOTE | 2021-10-09 18:55 | NUR ---
MS RN CLOSING NOTES PATIENT ON BED AWAKE, A/O X4. NO SIGNS OF ACUTE DISTRESS NOTED. REMAINS ON ROOM AIR TOLERATING WELL, NO SOB, BREATHING EVEN AND UNLABORED. WITH IV ACCESS ON RWRIST #22G, INTACT AND PATENT. ALL DUE MEDS GIVEN. MORPHINE GIVEN IVP FOR C/O ABDOMINAL PAIN. SAFETY MEASURES IN PLACE. BED LOCKED AND IN LOWEST POSITION, SR UP X2, CALL LIGHT PLACED WITHIN EASY REACH. WILL ENDORSE TO NEXT SHIFT.
--- NOTE | 2021-10-09 19:40 | NUR ---
MSRN ASLEEP, APPEARS COMFORTABLE. PROVIDED QUIET ENVI. CLOSELY WATCHED.
--- NOTE | 2021-10-09 19:40 | NUR ---
MSRN ASLEEP, APPEARS COMFORTABLE. PROVIDED QUIET ENVI. CLOSELY WATCHED.
[2021-10-09 20:00] VITALS: BP 101/40
[2021-10-09] MEDS: ATORVASTATIN 40 MG TABLET PO SCH (21:36)
[2021-10-10] MEDS: MORPHINE SULFATE INJ 2 MG/ML DISP.SYRIN IV PRN ×3 (00:08→16:55)
--- NOTE | 2021-10-10 00:10 | NUR ---
msrn VERBALIZES ABD PAIN, MORPHINE 2 MG IVP ADMINISTERED. BEDREST INSTRUCTED.D
--- NOTE | 2021-10-10 00:10 | NUR ---
msrn VERBALIZES ABD PAIN, MORPHINE 2 MG IVP ADMINISTERED. BEDREST INSTRUCTED.D
--- NOTE | 2021-10-10 02:57 | NUR ---
MSRN EASILY AWAKENED WHEN CALLED, PAINFREE OF THIS TIME
--- NOTE | 2021-10-10 02:57 | NUR ---
MSRN EASILY AWAKENED WHEN CALLED, PAINFREE OF THIS TIME
--- NOTE | 2021-10-10 05:15 | NUR ---
MSRN VERBALIZES ABDOMINAL PAIN, MORPHINE 2MG IVP ADMINISTERED. KEPT COMFORTABLE. DENIES NAUSEA. STATES SLIGHT ITCHING ONLY.
--- NOTE | 2021-10-10 05:15 | NUR ---
MSRN VERBALIZES ABDOMINAL PAIN, MORPHINE 2MG IVP ADMINISTERED. KEPT COMFORTABLE. DENIES NAUSEA. STATES SLIGHT ITCHING ONLY.
--- NOTE | 2021-10-10 06:50 | NUR ---
MSRN SLEEPING APPEARS COMFORTABLE.
--- NOTE | 2021-10-10 06:50 | NUR ---
MSRN SLEEPING APPEARS COMFORTABLE.
[2021-10-10] MEDS ORDERED: ASPIRIN 81 MG TAB.CHEW PO SCH (09:00)
[2021-10-10] MEDS: CLOPIDOGREL BISULFATE 75 MG TABLET PO SCH (09:03)
[2021-10-10] MEDS: ASPIRIN 81 MG TAB.CHEW PO SCH (09:03)
[2021-10-10 16:00] VITALS: BP 95/67
--- NOTE | 2021-10-10 19:35 | NUR ---
MSRN FULLY AWAKE, STATED ABDOMINAL PAIN BETTER THIS TIME. VOIDED 600 CC CLEAR YELLOW OUTPUT. NO OTHER NEEDS MADE. CLOSELY WATCHED.
--- NOTE | 2021-10-10 19:35 | NUR ---
MSRN FULLY AWAKE, STATED ABDOMINAL PAIN BETTER THIS TIME. VOIDED 600 CC CLEAR YELLOW OUTPUT. NO OTHER NEEDS MADE. CLOSELY WATCHED.
--- NOTE | 2021-10-10 19:45 | NUR ---
RN CLOSING NOTES PATIENT IS AWAKE IN BED RESTING, A/O X4. NO S/S OF PAIN NOTED AT THIS TIME. ON ROOM AIR, NO DISTRESS OR SHORTNESS OF BREATH NOTED. IV ACCESS R WRIST #22G, INTACT AND PATENT, FLUSHING WELL. FALL AND SAFETY MEASURES IN PLACE, BED ALARM ON, BED IN LOW AND LOCK POSITION, CALL LIGHT AND TABLE WITHIN EASY REACH, SIDE RAIL UP X2. WILL ENDORSE TO OPERATIONS RESEARCH MANAGER.
[2021-10-10 20:40] VITALS: BP 130/52
[2021-10-10] MEDS: ATORVASTATIN 40 MG TABLET PO SCH (21:54)
--- NOTE | 2021-10-11 01:00 | NUR ---
MSRN SLEPT WELL. NO NEEDS FOR NOW
--- NOTE | 2021-10-11 01:00 | NUR ---
MSRN SLEPT WELL. NO NEEDS FOR NOW
--- NOTE | 2021-10-11 05:55 | NUR ---
MSRN REMAINS UNCHANGED, ABDOMINAL PAIN TOLERABLE. WILL CALL IF PAIN WORSENS.
--- NOTE | 2021-10-11 05:55 | NUR ---
MSRN REMAINS UNCHANGED, ABDOMINAL PAIN TOLERABLE. WILL CALL IF PAIN WORSENS.
--- NOTE | 2021-10-11 07:30 | NUR ---
MS RN OPENING NOTES PATIENT IS AWAKE IN BED RESTING, A/O X4. NO S/S OF PAIN NOTED AT THIS TIME. ON ROOM AIR, NO DISTRESS OR SHORTNESS OF BREATH NOTED. IV ACCESS R WRIST #22G, INTACT AND PATENT, FLUSHING WELL. FALL AND SAFETY MEASURES IN PLACE, BED ALARM ON, BED IN LOW AND LOCK POSITION, CALL LIGHT AND TABLE WITHIN EASY REACH, SIDE RAIL UP X2. WILL CONTINUE TO MONITOR.
[2021-10-11 08:00] VITALS: BP 114/65
[2021-10-11] MEDS: ASPIRIN 81 MG TAB.CHEW PO SCH (08:47)
[2021-10-11] MEDS: CLOPIDOGREL BISULFATE 75 MG TABLET PO SCH (08:47)
[2021-10-11] MEDS ORDERED: CLOP75TA15 PO (09:37)
[2021-10-11 16:00] VITALS: BP 136/68
--- NOTE | 2021-10-11 18:48 | NUR ---
MS RN CLOSING NOTES PATIENT IS AWAKE IN BED RESTING, A/O X4. NO S/S OF PAIN NOTED AT THIS TIME. ON ROOM AIR, NO DISTRESS OR SHORTNESS OF BREATH NOTED. IV ACCESS R WRIST #22G, INTACT AND PATENT, FLUSHING WELL. DUE MEDS GIVEN ORDERED.FALL AND SAFETY MEASURES IN PLACE, BED ALARM ON, BED IN LOW AND LOCK POSITION, CALL LIGHT AND TABLE WITHIN EASY REACH, SIDE RAIL UP X2. WILL ENDORSE TO INCOMING SHIFT FOR NU.
--- NOTE | 2021-10-11 19:35 | NUR ---
MS RN OPENING NOTES RECEIVED PATIENT LAYING AWAKE IN BED. A/OX4. PATIENT WITH REGULAR AND UNLABORED BREATHING ON ROOM AIR TOLERATED WELL. NO SIGNS AND SYMPTOMS OF DISTRESS NOTED AT THIS TIME. NO COMPLAINS OF PAIN OR DISCOMFORT AT THIS TIME. IV ACCESS R WRIST G #22 SL. IV ACCESS PATENT AND INTACT. SAFETY PRECAUTIONS ENFORCED WITH BED LOCKED AND AT LOWEST POSITION. SIDERAILS UP X2. CALL LIGHT WITHIN REACH AT ALL TIMES. WILL CONTINUE TO MONITOR PATIENT.
[2021-10-11] MEDS: ATORVASTATIN 40 MG TABLET PO SCH (21:30)
[2021-10-11] MEDS: MORPHINE SULFATE INJ 2 MG/ML DISP.SYRIN IV PRN (22:59)
--- NOTE | 2021-10-11 23:00 | NUR ---
MS RN NOTES PATIENT COMPLAINED OF PAIN. ADMINISTERED MORPHINE ORDERED BY THE HOSPITALIST. WILL CONTINUE TO MONITOR PATIENT.
--- NOTE | 2021-10-11 23:00 | NUR ---
MS RN NOTES PATIENT COMPLAINED OF PAIN. ADMINISTERED MORPHINE ORDERED BY THE HOSPITALIST. WILL CONTINUE TO MONITOR PATIENT.
[2021-10-12] MEDS: MORPHINE SULFATE INJ 2 MG/ML DISP.SYRIN IV PRN (03:33)
--- NOTE | 2021-10-12 03:34 | NUR ---
MS RN NOTES PATIENT COMPLAINED OF PAIN. ADMINISTERED MORPHINE ORDERED BY THE HOSPITALIST. WILL CONTINUE TO MONITOR PATIENT.
--- NOTE | 2021-10-12 03:34 | NUR ---
MS RN NOTES PATIENT COMPLAINED OF PAIN. ADMINISTERED MORPHINE ORDERED BY THE HOSPITALIST. WILL CONTINUE TO MONITOR PATIENT.
--- NOTE | 2021-10-12 06:48 | NUR ---
MS RN CLOSING NOTES PATIENT STILL LAYING AWAKE IN BED. A/OX4. PATIENT WITH REGULAR AND UNLABORED BREATHING ON ROOM AIR TOLERATED WELL. NO SIGNS AND SYMPTOMS OF DISTRESS NOTED AT THIS TIME. NO COMPLAINS OF PAIN OR DISCOMFORT AT THIS TIME. IV ACCESS R WRIST G #22 SL. IV ACCESS PATENT AND INTACT. SAFETY PRECAUTIONS ENFORCED WITH BED LOCKED AND AT LOWEST POSITION. SIDERAILS UP X2. CALL LIGHT WITHIN REACH AT ALL TIMES. WILL ENDORSE CONTINUITY OF CARE TO DAY SHIFT NURSE.
--- NOTE | 2021-10-12 07:20 | NUR ---
MS RN OPENING NOTES RECEIVED PT IN BED LAYING ON HIS SIDE, AWAKE. ALERT AND ORIENTED X4 . NO S/SX OF DISTRESS NOTED. NO SOB. NO C/O PAIN AT THIS TIME. BREATHING EVEN AND UNLABORED, TOLERATING WELL ON ROOM AIR. IV ACCESS ON RHAND#22. SAFETY MEASURE IN PLACE WITH BED LOCKED AND IN LOWEST POSITION, SR UP X2, CALL LIGHT PLACED WITHIN EASY REACH. WILL CONTINUE TO MONITOR PT FOR CHANGES IN CONDITION.
[2021-10-12] MEDS: ASPIRIN 81 MG TAB.CHEW PO SCH (09:03)
[2021-10-12] MEDS: CLOPIDOGREL BISULFATE 75 MG TABLET PO SCH (09:03)
[2021-10-12 09:22] VITALS: BP 103/59
--- NOTE | 2021-10-12 15:50 | NUR ---
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 NO S/SX OF DISTRESS NOTED. NO SOB. BREATHING EVEN AND UNLABORED. IV ACCESS REMOVED. ID BAND REMOVED. DISCHARGE INSTRUCTIONS REVIEWED WITH PATIENT AND SIGNED BY PATIENT. ALL QUESTIONS ANSWERED, VERBALIZED UNDERSTANDING. [facility] PICKED UP PATIENT AT THIS TIME. ALL BELONGINGS ACCOUNTED FOR AND SIGNED FORM.
--- NOTE | 2021-10-12 15:50 | NUR ---
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 NO S/SX OF DISTRESS NOTED. NO SOB. BREATHING EVEN AND UNLABORED. IV ACCESS REMOVED. ID BAND REMOVED. DISCHARGE INSTRUCTIONS REVIEWED WITH PATIENT AND SIGNED BY PATIENT. ALL QUESTIONS ANSWERED, VERBALIZED UNDERSTANDING. [facility] PICKED UP PATIENT AT THIS TIME. ALL BELONGINGS ACCOUNTED FOR AND SIGNED FORM.
== END 2021-10-12 16:00 | DRG 64 ==
LOC: ER 19:51 → TRANSITION 21:38 → TELE 10-04 00:05 → MED 10-07 15:13
PROVIDERS: ADMIT Nurse Practitioner Acute Care; ATTEND Internal Medicine
DX: I63.9 Cerebral infarction, unspecified (principal); N17.0 Acute kidney failure with tubular necrosis; D68.59 Other primary thrombophilia; I50.32 Chronic diastolic (congestive) heart failure; Z68.43 Body mass index [BMI] 50.0-59.9, adult; I12.9 Hypertensive chronic kidney disease with stage 1 through stage 4 chronic kidney disease, or unspecified chronic kidney disease; N18.9 Chronic kidney disease, unspecified; I25.10 Atherosclerotic heart disease of native coronary artery without angina pectoris; E66.01 Morbid (severe) obesity due to excess calories; E87.6 Hypokalemia; Z86.73 Personal history of transient ischemic attack (TIA), and cerebral infarction without residual deficits; Z86.718 Personal history of other venous thrombosis and embolism; Z95.5 Presence of coronary angioplasty implant and graft; I67.1 Cerebral aneurysm, nonruptured; Z20.822 Contact with and (suspected) exposure to COVID-19; I25.2 Old myocardial infarction; M50.30 Other cervical disc degeneration, unspecified cervical region; M48.02 Spinal stenosis, cervical region; Z79.82 Long term (current) use of aspirin; R29.707 NIHSS score 7
CPT/HCPCS: 36415; 70450-TC; 70496-TC; 70498-TC; 71045-TC; 80048-TC; 80053-TC; 80061-TC; 82550-TC; 82962-TC; 83735-TC; 83880; 83970; 84100-TC; 84155; 84165; 84439-TC; 84443-TC; 84484-TC; 85025-TC; 85652-TC; 85730-TC; 87081-TC; 92526; 92611-TC; 93307-TC; 97110-TC; 97116-TC; 97530-TC; 97535-TC; G0378; J2270; J2405; J7030; J7050; Q9967